=== PATIENT | male | born 1975 | race Caucasian/White ===

== ENCOUNTER 2021-06-09 15:39 | Emergency (ER) | payer SELFPAY ==
[2021-06-09] MEDS ORDERED: BLEPH-10 O20 DROPS/M OS (17:25)
[2021-06-09] MEDS ORDERED: PERMETHRIN CREA60 GM TOP (17:25)
[2021-06-09] MEDS ORDERED: CEPHALEXIN500 MG PO (17:45)
== END 2021-06-09 18:23 | disposition home or self-care (01) ==
LOC: FER 15:39
DX: B86 Scabies (principal); H10.9 Unspecified conjunctivitis
CPT/HCPCS: 99282